=== PATIENT | male | born 1965 | race Caucasian/White ===

== ENCOUNTER → 2016-12-03 | Outpatient (REF) ==
[~2016-12-03] MED LIST: GLUCOPHAGE500 MG/TAB PO; INDOCIN50 MG PO; MULTI VITAMINS1 TAB PO; NIACOR500 MG PO; NORCO 325 MG-7.1 TAB PO; PREDNISONE 5MG5 MG PO; PRINIVIL10 MG PO; ROCEPHIN 2GM VIAL21 IJ; ZESTRIL 5MG5 MG PO; ZYLOPRIM 300MG300 MG PO
== END ==
LOC: ZLAB.WCH 18:09
DX: Z01.89 Encounter for other specified special examinations (principal)

== ENCOUNTER → 2017-12-04 | Outpatient (REF) | LOC: ZLAB.WCH 08:48 | DX: Z01.89 Encounter for other specified special examinations (principal) ==